=== PATIENT | male | born 1970 | race Caucasian/White ===

== ENCOUNTER 2020-08-03 20:00 | Outpatient (CLI) | payer OTHER, SELFPAY | END 2020-08-03 20:01 | disposition home or self-care (01) | LOC: SLEEP 08-04 09:35 | PROVIDERS: Family Provider Family Medicine; Visit Provider Family Medicine | DX: R06.83 Snoring (principal); R53.83 Other fatigue; G47.33 Obstructive sleep apnea (adult) (pediatric) | CPT/HCPCS: 95810 ==

== ENCOUNTER 2020-10-05 20:00 | Outpatient (CLI) | payer OTHER, SELFPAY | END 2020-10-05 20:01 | disposition home or self-care (01) | LOC: SLEEP 10-06 09:23 | PROVIDERS: Family Provider Family Medicine; Visit Provider Family Medicine | DX: G47.33 Obstructive sleep apnea (adult) (pediatric) (principal) | CPT/HCPCS: 95811 ==